=== PATIENT | male | born 1965 | race Caucasian/White ===

== ENCOUNTER 2019-02-21 17:25 | Emergency (ER) | payer OTHER ==
[~2019-02-21] VITALS: Ht 170.2 cm; Wt 108.9 kg
[2019-02-21 17:35] VITALS: BP 123/72
[2019-02-21] MEDS ORDERED: IBUPROFEN 400 MG TABLET PO ONE (18:00)
[2019-02-21] MEDS ORDERED: IBUPROFEN 400 MG TABLET ONE (18:11)
--- NOTE | 2019-02-21 18:29 | NUR ---
Pt able to ambulate w/walker w/o any difficulty. Gait steady
== END 2019-02-21 20:24 | disposition home or self-care (01) ==
LOC: ER 17:30
DX: M25.572 Pain in left ankle and joints of left foot (principal); M25.571 Pain in right ankle and joints of right foot; Z59.0 Homelessness; F19.10 Other psychoactive substance abuse, uncomplicated
CPT/HCPCS: 73610-TC